=== PATIENT | male | born 1995 | race Caucasian/White ===

== ENCOUNTER 2021-07-07 16:45 | Emergency (ER) | payer OTHER, SELFPAY ==
[2021-07-07 16:50] VITALS: BP 114/65; PULSE 67; RESP 16; TEMP 36.6; O2SAT 100
--- NOTE | 2021-07-07 17:09 | ED.ABDPAIN ---
HPI - Abdominal Pain General Chief Complaint: Abdominal Pain Stated Complaint: abd pain/vomiting Time Seen by Provider: 07/07/21 17:10 Source: patient and RN notes reviewed Mode of arrival: ambulatory Limitations: no limitations History of Present Illness HPI narrative: 25-year-old male presents to the [facility] with complaints of abdominal pain and vomiting. Patient reports that it was sudden onset while watching Netflix with his cat. States it started around his bellybutton and after he vomited went to the right flank and right lower quadrant. Right lower quadrant, rebound tenderness positive heel strike. Denies any past medical or surgical history. Related Data Allergies Allergy/AdvReac Type Severity Reaction Status Date / Time citalopram Allergy Mild Other Verified 07/07/21 17:13 amoxicillin Allergy Rash Verified 07/07/21 17:13 Penicillins Allergy Swelling Verified 07/07/21 17:13 Cat Dander Allergy Mild Unknown Uncoded 07/07/21 17:13 CITALOPRAM HYDROBROMIDE Allergy Mild Other Uncoded 07/07/21 17:13 Dog Dander Allergy Mild Unknown Uncoded 07/07/21 17:13 Maple Tree Allergy Mild Unknown Uncoded 07/07/21 17:13 Molds and Smuts Allergy Mild Unknown Uncoded 07/07/21 17:13 Review of Systems Review of Systems: All systems reviewed & are unremarkable except as noted in HPI and below Constitutional: Constitutional: Reports no additional constitutional complaints, Denies chills and Denies fever(s) Eyes: Eyes: Reports no additional eye complaints ENT: Reports system reviewed and no additional complaints, except as documented Cardiovascular: Cardiovascular: Reports no additional cardiovascular complaints Respiratory: Respiratory: Reports no additional respiratory complaints Gastrointestinal: Gastrointestinal: Reports as per HPI, Reports abdominal pain (Right lower quadrant), Denies diarrhea, Reports nausea and Reports vomiting Genitourinary: Genitourinary: Reports no additional male genitourinary complaints Musculoskeletal: Musculoskeletal: Reports no additional musculoskeletal complaints Integumentary/Breasts: Skin/Breast: Reports system reviewed and no additional complaints, except as docu Neurologic: Reports system reviewed and no additional complaints, except as documented Psychiatric: Psychiatric: Reports no additional psychiatric complaints Allergic/Immunologic: Allergic/Immunologic: Reports no additional allergic/immunologic complaints PMFSH Past Medical History Medical History (Updated 07/07/21 @ 17:20 by Salina Gamez) No significant medical problems Surgical History Surgical History (Updated 07/07/21 @ 17:20 by Salina Gamez) No significant past surgical history Comments At the time of my signature, I reviewed and agree with the nursing past medical, surgical, social, and family history. There is no relevant family history pertinent to the patient complaint. Exam Const: General: healthy appearing and alert Nutritional Appearance: well nourished Orientation/consciousness: patient oriented x3 Limitations: no limitations HENMT: Head: normal to inspection Eyes: Conjunctivae: conjunctivae normal Pupils: Equal, round and reactive pupils present Neck: Neck: normal visual inspection, no lymphadenopathy and no meningeal signs Chest: Chest palpation & inspection: normal inspection of the chest Resp: Effort & Inspection: normal respiratory effort Auscultation: clear to auscultation bilaterally Cardio: Rate: regular rate Rhythm: regular rhythm GI: GI Palp: Yes Soft to palpation, Yes Guarding due to palpation present (GI) (Umbilical, right lower quadrant), No Rigid due to palpation, No Palpable mass present and Yes Rebound tenderness present (Right lower quadrant) Back/Spine/Pelvis: Back: no CVA tenderness Skin: General skin exam: normal color Rashes: no rashes Wounds: no wounds Neuro: General: patient oriented x3, moves all extremities, no meningeal signs and no focal motor deficits Speec
--- NOTE | 2021-07-07 17:26 | PC.NURSE ---
Pt reports that he has had suicidal ideation in the past, but does not have any at this time.
== END 2021-07-07 17:28 | disposition short-term general hospital (02) ==
PROVIDERS: Emergency Provider Nurse Practitioner
DX: R10.31 Right lower quadrant pain (principal)
CPT/HCPCS: 99212; G0463

== ENCOUNTER 2021-10-29 09:19 | Emergency (ER) | payer OTHER, SELFPAY ==
--- NOTE | ~2021-10-29 | XR_ITS ---
EXAMINATION: XR hand RT min 3V DATE: 10/29/2021 09:41 INDICATION: Right hand injury and pain. TECHNIQUE: 3 views of right hand were obtained. COMPARISON: Right hand radiograph 07/13/2011 FINDINGS: Bone alignment is normal. No fracture. Joint spaces are well maintained. IMPRESSION: 1. No fracture. Reviewed, dictated and finalized at location [facility] IMPRESSION: 1. No fracture.
[2021-10-29 09:32] VITALS: BP 112/68; PULSE 85; RESP 16; TEMP 36.7; O2SAT 100
--- NOTE | 2021-10-29 09:50 | ED.GENADULT ---
HPI - General Adult General Stated complaint: injury right 4th/5th finger Source: patient Mode of arrival: ambulatory Limitations: no limitations History of Present Illness HPI narrative: Patient is a 26-year-old female presents to the [facility] via POV for evaluation of injury of right middle and ring finger that occurred today at work. He reports he was working and accidently smacked it against something . Related Data Home Medications Medication Instructions Recorded Confirmed levothyroxine 75 mcg PO DAILY 10/29/21 10/29/21 Allergies Allergy/AdvReac Type Severity Reaction Status Date / Time citalopram Allergy Mild Other Verified 10/29/21 09:33 amoxicillin Allergy Rash Verified 10/29/21 09:33 Penicillins Allergy Swelling Verified 10/29/21 09:33 Cat Dander Allergy Mild Unknown Uncoded 10/29/21 09:33 CITALOPRAM HYDROBROMIDE Allergy Mild Other Uncoded 10/29/21 09:33 Dog Dander Allergy Mild Unknown Uncoded 10/29/21 09:33 Maple [place] Allergy Mild Unknown Uncoded 10/29/21 09:33 Molds and Smuts Allergy Mild Unknown Uncoded 10/29/21 09:33 Review of Systems Review of Systems: Pertinent negatives: fever, chills, sweats, change in appetite, poor p.o. intake, malaise, skin color changes, rash, warmth, swelling, numbness, tingling, loss of sensation, deformity, decreased range of motion, weakness, difficulty with ambulation/coordination, nausea, vomiting, lymphadenopathy, shortness of breath, chest pain, heart palpitations, and heart murmur. PMFSH Past Medical History Medical History No significant medical problems Surgical History Surgical History No significant past surgical history Comments I have reviewed and agree with the patient's past medical, surgical, social, and family hx as documented by the RN. There is no relevant family history pertinent to the presenting complaint. Exam Narrative: GENERAL: Well-appearing, well-nourished, and in no acute distress. HEAD: Normocephalic, atraumatic. NECK: Supple. No Lymphadenopathy or nuchal rigidity appreciated. CHEST: Bilateral lung read are clear to auscultation. No respiratory distress. No evidence of cough or pleuritic cp upon examination. HEART: Regular rate and rhythm. No murmur, gallop, or rub heard. EXTREMITIES: No evidence of injury, decreased ROM, swelling, cyanosis, hematoma, laceration, abrasion, deformity, rash, or puncture. No evidence of pain with active/passive ROM. No evidence of dislocation, ligament laxity, effusion, or pain at rest. Pulses palpable at 2+, strength 5/5, and cap refill < 3 seconds in affected extremity. DTRs normal. Gait normal. SKIN: Warm, dry, no rash. NEURO: No focal deficits. Alert and oriented x3. SPECIAL OBSERVATIONS: Smiling. Laughing. No evidence of discomfort. C/O of of proportion to exam. Eating XXX. Running around. Tolerates food/fluids. Course Vital Signs Vital signs: Vital Signs Temperature 98.0 F 10/29/21 09:32 Pulse Rate 85 10/29/21 09:32 Respiratory Rate 16 10/29/21 09:32 Blood Pressure 112/68 10/29/21 09:32 Pulse Oximetry 100 10/29/21 09:32 Temperature 98.0 F 10/29/21 09:32 Pulse Rate 85 10/29/21 09:32 Respiratory Rate 16 10/29/21 09:32 Blood Pressure 112/68 10/29/21 09:32 Pulse Oximetry 100 10/29/21 09:32 Procedures Orthopedic Splinting/Casting Injury #1: Splinting/Casting Date: 10/29/21 Side: right Upper Extremity Injury Location: hand Upper Extremity Immobilizer: Yandel wrap Pre-Procedure Neuro Vascular Exam: normal Post-Procedure Neuro Vascular Exam: normal Medical Decision Making Differential Diagnosis Differential Diagnosis: Sprain, strain, cellulitis, open fracture, closed fracture, gout Medical Records Medical records reviewed: Yes I reviewed the external patient's medical records. Vital Signs Vital S
== END 2021-10-29 10:06 | disposition home or self-care (01) ==
PROVIDERS: Emergency Provider Nurse Practitioner Family
DX: S69.91XA Unspecified injury of right wrist, hand and finger(s), initial encounter (principal); W22.8XXA Striking against or struck by other objects, initial encounter; Y99.0 Civilian activity done for income or pay
CPT/HCPCS: 73130; 99213; G0463

== ENCOUNTER 2022-07-23 14:00 | Emergency (ER) | payer OTHER, SELFPAY ==
[2022-07-23 14:12] VITALS: BP 125/69; PULSE 90; RESP 16; TEMP 37.4; O2SAT 100
--- NOTE | 2022-07-23 14:17 | ED.URI ---
HPI - URI/Sore Throat General Chief Complaint: Upper Respiratory Infection Stated Complaint: Fever, Cough Source: patient Mode of arrival: ambulatory Limitations: no limitations History of Present Illness HPI Narrative: Mr. Murillo is a 26-year-old male patient presenting to the clinic today with complaints of nasal congestion, sore throat, fever, nonproductive cough, chills, and body aches. He reports that his temperature was 101.7 ?F this morning. He reports the symptoms of been ongoing x3 days. He states his voice has been coming and going. Is requesting a work note for today. MD elicited complaint: sore throat and nasal congestion Related Data Home Medications Medication Instructions Recorded Confirmed levothyroxine 75 mcg tablet 100 mcg PO DAILY 10/29/21 07/23/22 Allergies Allergy/AdvReac Type Severity Reaction Status Date / Time citalopram Allergy Mild Other Verified 07/23/22 14:04 amoxicillin Allergy Rash Verified 07/23/22 14:04 Penicillins Allergy Swelling Verified 07/23/22 14:04 Cat Dander Allergy Mild Unknown Uncoded 07/23/22 14:04 CITALOPRAM HYDROBROMIDE Allergy Mild Other Uncoded 07/23/22 14:04 Dog Dander Allergy Mild Unknown Uncoded 07/23/22 14:04 [place] Allergy Mild Unknown Uncoded 07/23/22 14:04 Molds and Smuts Allergy Mild Unknown Uncoded 07/23/22 14:04 Review of Systems Review of Systems: Pertinent positives per HPI. Patient denies any fever, chills, rash, headache, visual changes, dizziness, cough, shortness of breath, chest pain, palpitations, nausea, vomiting, diarrhea, constipation, abdominal pain, or any urinary issues. PMFSH Past Medical History Medical History No significant medical problems Surgical History Surgical History No significant past surgical history Comments At the time of my signature, I reviewed and agree with the nursing past medical, surgical, social, and family history. There is no relevant family history pertinent to the patient complaint. Exam Narrative: General: Well-developed, well nourished, in no apparent distress Head: Normocephalic, atraumatic Eyes: Pupils equally round and reactive to light bilaterally, EOM intact, sclera and conjunctive clear, no discharge, lids normal Ears: TMs intact and clear, ear canals clear, no drainage, grossly hearing normal. Nose: Nares patent, clear and discharge, no inflammation, no sinus tenderness. Mouth: Oral pharynx without lesions or masses, good dentition, MMM. Oropharynx red Neck: Supple, trachea midline, no enlargement of anterior or posterior cervical nodes, no thyroid masses or goiter palpable. Cardio: Regular rate and rhythm, s1 and s2 normal, no murmur appreciated. Resp: Clear to auscultation bilaterally, no rhonchi, rales, wheezing or rubs Course Course Emergency Course: Portions of this record may have been created with voice recognition software. Level of Care: Express Care Visit Vital Signs Vital signs: Vital Signs Temperature 37.4 C 07/23/22 14:12 Pulse Rate 90 07/23/22 14:12 Respiratory Rate 16 07/23/22 14:12 Blood Pressure 125/69 07/23/22 14:12 Pulse Oximetry 100 07/23/22 14:12 Oxygen Delivery Room Air 07/23/22 14:12 Temperature 37.4 C 07/23/22 14:12 Pulse Rate 90 07/23/22 14:12 Respiratory Rate 16 07/23/22 14:12 Blood Pressure 125/69 07/23/22 14:12 Pulse Oximetry 100 07/23/22 14:12 Oxygen Delivery Room Air 07/23/22 14:12 Vital signs reviewed MDM - URI/Sore Throat MDM Narrative Medical decision making narrative: At the time of visit patient is resting comfortably on the exam table. COVID test was performed and was negative in the clinic. Strep culture was sent to the lab. Patient declined flu testing at this time supportive measures were discussed with the patient he voiced understanding of discharge instructions
== END 2022-07-23 14:43 | disposition home or self-care (01) ==
PROVIDERS: Emergency Provider Nurse Practitioner Family
DX: J06.9 Acute upper respiratory infection, unspecified (principal); B34.9 Viral infection, unspecified; J02.9 Acute pharyngitis, unspecified; J04.0 Acute laryngitis; Z20.822 Contact with and (suspected) exposure to COVID-19; E03.9 Hypothyroidism, unspecified
CPT/HCPCS: 87081; 87426; 87880; 99213; C9803; G0463